=== PATIENT | male | born 1950 | race Caucasian/White ===

== ENCOUNTER 2018-06-11 09:00 | Day surgery (SDC) | payer OTHER ==
--- OUTSIDE RECORDS SUMMARY | 2018-06-11 09:07 | XMS REPORT ---
:1950 [facility] Address [address] [place] [address] Dr. Lawrence [address] [place] [id number] Care Team Providers Name Role Phone Unavailable Unavailable Unavailable Problems This patient has no known problems. Allergies, Adverse Reactions, Alerts This patient has no known allergies or adverse reactions. Medications This patient has no known medications.
[2018-06-11 09:22] LABS: Albumin 3.4 g/dL (3.4-5.0); Bilirubin Direct 0.1 mg/dL (0-0.2); Bilirubin Total 0.3 mg/dL (0.2-1.0); Potassium 4.2 mmol/L (3.5-5.1); Protein, Total 7.2 g/dL (6.4-8.2)
[2018-06-11 09:23] LABS: Absolute Monocytes 0.6 K/uL (0.1-1.3); Absolute Neutrophil 3.2 K/uL (1.8-8.0); Basophils % 1.3 % (0-1.3); Eosinophils % 11.8 % (0-4.4); Hematocrit 44.7 % (39.6-49.0); Lymphocytes % 30.4 % (15.3-44.8); MPV 8.1 fL (7.6-11.3); Monocytes % 8.7 % (3.3-12.3); RBC Red Blood Cell Count 4.96 M/uL (4.33-5.43)
[2018-06-11] MEDS ORDERED: Ringers Lactate 1,000 ML IV ONE ×2 (09:27→11:51)
[2018-06-11] MEDS ORDERED: CIPROFLOXACIN 400mg IV 400 MG/200 ML BAG IV ONE (09:27)
--- NOTE | 2018-06-11 09:50 | RAD REPORT ---
EXAM DESCRIPTION: Carlos Brumfield (2 Views)06/11/2018 8:59 am CLINICAL HISTORY: Abdominal pain/preop for cholecystectomy COMPARISON: None FINDINGS: The lungs appear clear of acute infiltrate. The heart is normal size IMPRESSION: No acute abnormalities displayed
--- NOTE | 2018-06-11 09:51 | EKG ---
Test Date: 2018-06-11 Test Time: 08:52:56 Manager Membership: JHONNY MEASUREMENT RESULTS: Intervals: Rate: 61 SD: 202 QRSD: 110 QT: 414 QTc: 416 Douglas: P: 52 SD: 202 QRS: -31 T: 34 INTERPRETIVE STATEMENTS: Normal sinus rhythm Left axis deviation Abnormal ECG No previous ECG available for comparison Electronically Signed On 06-11-18 09:50:39 LIBRARY ATTENDANT by Mahendra Dickey
[2018-06-11] MEDS ORDERED: BUPIVACAINE 0.5% PF 10 ML VIAL ONE (10:35)
[2018-06-11] MEDS ORDERED: MIDAZOLAM HCL 2 MG/2 ML INJ ONE (10:45)
[2018-06-11] MEDS ORDERED: LIDOCAINE 2% MPF 5 ML VIAL ONE (10:45)
[2018-06-11] MEDS ORDERED: FENTANYL CITR 100 MCG/2 ML ONE (10:45)
[2018-06-11] MEDS ORDERED: PROPOFOL 200 MG/20 ML VIAL IV ONE (10:45)
[2018-06-11] MEDS ORDERED: ROCURONIUM 50 MG/5 ML VIAL IV ONE (10:45)
[2018-06-11] MEDS ORDERED: DEXAMETHASONE 10 MG/ML VIAL ONE (10:58)
[2018-06-11] MEDS ORDERED: GLYCOPYRROLATE 0.2 MG/ML SYR ONE (11:44)
[2018-06-11] MEDS ORDERED: KETOROLAC 30 MG/ML INJ ONE (11:45)
[2018-06-11] MEDS ORDERED: NEOSTIGMINE 1 MG/ML -10 ML VIAL ONE (11:46)
--- NOTE | 2018-06-11 11:53 | P.BOP ---
Preoperative diagnosis: acute cholecystitis, symptomatic cholelithiasis Postoperative diagnosis: same Primary procedure: Laparoscopic cholecystectomy Awning Installer: Luisa Tatum (Paul) Estimated blood loss: <10cc Specimen: gb Findings: as above Anesthesia: General Complications: None Transferred to: Recovery Room Condition: Good
[2018-06-11] MEDS: HYDROMORPHONE HCL 2 MG/ML inj ONE ×2 (12:18→12:25)
[2018-06-11] MEDS ORDERED: CODEINE 30MG/APAP 300MG TAB ONE (13:52)
--- NOTE | 2018-06-12 06:27 | DS ---
Date of Discharge: 06/11/2018 Diagnoses: Acute cholecystitis, symptomatic cholelithiasis. Procedure: Laparoscopic cholecystectomy. Disposition: Home. Activity: As tolerated. No heavy lifting. Followup: Follow up in my office in 1 week. Call for appointment [phone]. Keep the area dry for 4 8 hours, then may shower. Keep the Steri-Strip intact. Medications: The patient is already taking Cipro at home. We are going to give him Tylenol No. 3 for pain. JOSH/BAYLEE Voice ID: [id number] Report ID: [id number]
--- NOTE | 2018-06-12 06:27 | OP ---
Date of Procedure: 06/11/2018 Surgeon: Rajiv Velasquez MD Preoperative Diagnoses: Acute cholecystitis, symptomatic cholelithiasis. Postoperative Diagnoses: Acute cholecystitis, symptomatic cholelithiasis. Procedure: Laparoscopic cholecystectomy. Anesthesia: General plus local. Indication: This is the case of a 67-year-old patient, comes to us 7 hours ago with acute abdominal pain, epigastric, right upper quadrant. Diagnosed with acute cholecystitis, symptomatic cholelithias is. The patient is booked in OR for laparoscopic possible open cholecystectomy with benefits, altern atives, and risks including, but not limited to infection, bleeding, damage to adjacent structures, a nesthesia complication, choledocholithiasis, bile leak, pancreatitis, UT, and even . He also un derstands this may not relieve the symptoms, he might need more than one surgical intervention. He w as also explained the importance of losing weight and he was consulted about that. He signed a conse nt. Description Of Procedure: The patient was brought to the operating room, placed in supine position. Anesthesia was done without complication. Abdominal area was prepped and draped in a sterile fashio n. Marcaine 0.5% was injected for local anesthetic, followed by sharp incision of the skin in the pe riumbilical region. Incision was carried down to fascia, which was opened under direct vision. Maribell toneum was encountered, opened under direct vision. Vicryl #1 was placed inside the fascia. Malou trocar was carefully introduced. Pneumoperitoneum was obtained. I placed 3 more trocars in the righ t upper quadrant under direct visualization, 5 mm each one of them. This allowed me to put a grasper in the fundus of the gallbladder. Some adhesions of omentum to the gallbladder were carefully lysed with the Endo Harrison with Bovie cauterizer, with no bleeding. This allowed me to visualize the area of the infundibulum. The gallbladder was retracted in the inferolateral fashion exposing the triang le of Calot and obtaining critical view of safety. Cystic duct and cystic artery were clearly isolat ed, free circumferentially, and a connection between those and the gallbladder was clearly identified . I proceeded to ligate those by using at least 3 clips proximal, 1 clip distal, ligation in middle. Same was done with the cystic artery. A small little branch of the cystic artery going directly in to the gallbladder was also ligated. Hepatic arteries and common bile duct were protected at all rocky es. I proceeded to remove the gallbladder with Bovie cauterizer from the liver and removed the gallb ladder from abdominal cavity using an EndoCatch through the umbilical incision. The area was inspect ed once again. No bile leak. No bleeding. The area of the lysis of adhesions showed also no bleedi ng. The clips looked intact. At that moment, I proceeded to remove the trocars under direct vision, deflated pneumoperitoneum, closed the fascia with #1 Vicryl, irrigated subcutaneous tissue, and clos ed that with 3-0 chromic and skin in a subcuticular fashion with 3-0 chromic and Steri-Strips on top. Sponge count and instrument counts were correct. The patient tolerated the procedure well. The pa tiemacey was sent to recovery in stable condition. JOSH/BAYLEE Voice ID: [id number] Report ID: [id number]
== END 2018-06-11 14:05 | disposition home or self-care (01) ==
LOC: OR 09:00
PROVIDERS: ATTEND Surgery
PROC: 0FT44ZZ Resection of Gallbladder, Percutaneous Endoscopic Approach (ICD-10-PCS; principal; 2018-06-11 10:15)
DX: K80.12 Calculus of gallbladder with acute and chronic cholecystitis without obstruction (principal); I10 Essential (primary) hypertension; Z88.0 Allergy status to penicillin; F17.220 Nicotine dependence, chewing tobacco, uncomplicated; Z80.42 Family history of malignant neoplasm of prostate; Z83.3 Family history of diabetes mellitus; Z82.49 Family history of ischemic heart disease and other diseases of the circulatory system
CPT/HCPCS: 36415; 47562; 71046; 80048; 80076; 82150; 83690; 85025; 88304; 93005; J0744; J1100; J1170; J2250; J2704; J2710; J3010